=== PATIENT | female | born 1980 | race Two or more races ===

== ENCOUNTER 2020-05-16 12:36 | Emergency (ER) | payer OTHER ==
[~2020-05-16] VITALS: Ht 170.2 cm; Wt 100.0 kg
[~2020-05-16 12:36] MED LIST: DOXY100C47 PO; INSU100V31 SQ; LEVO25TA4 PO; METR500 PO; MICONAZOLE; PERCT PO; [UNRECOGNIZED DRUG - OTHER] SQ
[2020-05-16 13:19] LABS: GLUCOSE,POINT OF CARE 89 MG/DL (70-110)
[2020-05-16] MEDS ORDERED: ACETAMINOPHEN 325 MG TABLET PO ONE (13:45)
[2020-05-16 14:28] LABS: BASOPHILS % (AUTO) 0.8 % (0.0-2.0); EOSINOPHILS % (AUTO) 0.1 % (1.0-6.0); HEMATOCRIT 39.4 % (36-46); HEMOGLOBIN 13.1 g/dL (12.0-16.0); LYMPHOCYTES # (AUTO) 1.3 K/uL (1.0-4.8); LYMPHOCYTES % (AUTO) 12.2 % (22.0-44.0); MEAN CORPUSCULAR HEMOGLOBIN 26.4 pg (26.0-34.0); MEAN CORPUSCULAR HGB CONC 33.2 G/dL (31.0-37.0); MEAN CORPUSCULAR VOLUME 80 fL (80-100); MONOCYTES # (AUTO) 0.4 K/uL (0.1-1.0); MONOCYTES % (AUTO) 3.5 % (2.0-9.0); NEUTROPHILS # (AUTO) 9.2 K/uL (1.8-7.7); NEUTROPHILS % (AUTO) 83.4 % (40.0-70.0); PLATELET COUNT (AUTO) 324 K/uL (150-450); RED BLOOD CELL COUNT(AUTO) 4.96 MIL/uL (4.00-5.20); RED CELL DISTRIBUTION WIDTH 16.4 % (11.5-14.5)
[2020-05-16 14:29] LABS: ANION GAP 9 mmol/L (8-16); CALCIUM, TOTAL 8.7 mg/dL (8.8-10.5); CARBON DIOXIDE 25 mmol/L (22-29); CHLORIDE 104 mmol/L (98-107); CREATININE 0.65 mg/dL (0.60-1.30); GLOMERULAR FILTR. RATE CALC > 60 mL/min (>60); GLUCOSE,RANDOM 141 mg/dL (70-110); POTASSIUM 3.7 mmol/L (3.5-5.1); SODIUM SERUM 138 mmol/L (136-145); UREA NITROGEN, BLOOD 11 mg/dL (7-18)
[2020-05-16 14:34] LABS: SALICYLATE 1.4 mg/dL (2.8-20.0)
[2020-05-16 14:42] LABS: ALANINE AMINOTRANSFERASE 33 U/L (12-78); ALBUMIN 3.7 g/dL (3.4-5.0); ALKALINE PHOSPHATASE 98 U/L (46-116); ASPARTATE AMINOTRANSFERASE 28 U/L (15-37); BILIRUBIN,TOTAL 0.5 mg/dL (0.1-1.0); FREE T4 (FREE THYROXINE) 1.58 ng/dL (0.76-1.46); THYROID STIMULATING HORMONE 0.39 uIU/mL (0.36-3.74); TOTAL PROTEIN, SERUM 8.2 g/dL (6.4-8.2)
[2020-05-16 14:45] LABS: ACETAMINOPHEN < 2 mcg/mL (10-30)
[2020-05-16 15:00] VITALS: BP 140/86
== END 2020-05-16 15:48 | disposition home or self-care (01) ==
LOC: EMS 12:36
DX: E11.649 Type 2 diabetes mellitus with hypoglycemia without coma (principal); F15.10 Other stimulant abuse, uncomplicated; E03.9 Hypothyroidism, unspecified; Z79.4 Long term (current) use of insulin
CPT/HCPCS: 36415; 80053; 82962; 84439; 84443; 85025; 99283; G0480; G0481